=== PATIENT | female | born 1990 | race American Indian/Alaskan Native ===

== ENCOUNTER 2018-11-20 05:52 | Day surgery (SDC) | payer MEDICAID ==
--- NOTE | 2018-11-19 16:56 | Short Stay Summary ---
Short Stay Documentation Date of service: 11/20/18 Narrative H&P: 28y/o with findings of a right adnexal mass likely consistent with a dermoid tumor. The patient complains of pelvic pain and dyspareunia. There has been no resolution of the cyst with expectant management. Patient has been reassessed/reevaluated/re-examined. H&P has been reviewed. No interval changes. - History Principal diagnosis: Right adnexal mass Past Medical History: HIV/AIDS Past Surgical History: Social history: single - Allergies and Medications Current Medications: Allergies No Known Allergies Allergy (Verified 11/14/18 09:01) Home Medications Medication Instructions Recorded Confirmed Last Taken Type Elviteg/Cob/Emtri/Tenof Alafen 1 each PO DAILY 11/18/18 11/18/18 Unknown History [Genvoya Tablet] - Physical exam General appearance: no acute distress Integumentary: no rash HEENT: Atraumatic Lungs: Clear to auscultation Breasts: deferred Heart: Regular rate Gastrointestinal: normal Female Genitourinary: deferred Rectal Exam: deferred - Brief post op/procedure progress note Date of procedure: 11/20/18 Pre-op diagnosis: Right adnexal mass Post-op diagnosis: same Procedure: laparoscopy right ovarian cystectomy left ovarian cystotomy Anesthesia: GETA Surgeon: PEG MENG Estimated blood loss: minimal Pathology: list (contents of dermoid cyst and ovarian cyst wall) Specimen disposition: to lab Condition: stable - Hospital course Hospital course: The patient was admitted the day of surgery and underwent a laparoscopy for right adnexal mass. Please see operative note for details of surgery. Postoperative course was uneventful. - Disposition Condition at discharge: Good Disposition: DC-[id number] TO HOME OR SELFCARE Short Stay Discharge Plan Activity: other (pelvic rest for 1 week) Diet: regular Additional Instructions: Patient may schedule follow up with Dr. Arias in 2 weeks Prescriptions: Ibuprofen [Motrin] 800 mg PO Q8HR PRN #60 tablet PRN Reason: Pain, Mild (1-3) oxyCODONE /ACETAMINOPHEN [Percocet 5/325] 1 tab PO Q6HR PRN #20 tablet PRN Reason: Pain
[2018-11-20] MEDS ORDERED: LACTATED RINGERS 1,000 ML IV SCH (06:35)
[2018-11-20] MEDS ORDERED: NACL BACTERIOSTATIC INFILTRATI ONE (06:40)
[2018-11-20] MEDS ORDERED: MARCAINE 0.5% INFILTRATI ONE ×2 (06:53→07:39)
[2018-11-20] MEDS ORDERED: XYLOCAINE MPF 2% ONE (07:24)
[2018-11-20] MEDS ORDERED: ZOFRAN ONE (07:24)
[2018-11-20] MEDS ORDERED: DECADRON ONE (07:24)
[2018-11-20] MEDS ORDERED: DIPRIVAN 10 MG/ML IV ONE (07:24)
[2018-11-20] MEDS ORDERED: ZEMURON IV ONE (07:24)
[2018-11-20] MEDS ORDERED: SUBLIMAZE ONE (07:24)
[2018-11-20] MEDS ORDERED: TORADOL ONE (07:24)
[2018-11-20] MEDS ORDERED: NEURONTIN PO NR (07:26)
[2018-11-20 07:28] LABS: Hematocrit 38.8 % (30.3-42.9)
[2018-11-20] MEDS ORDERED: NACL 0.9% IR ONE ×2 (07:39)
[2018-11-20] MEDS ORDERED: VERSED IV NR (08:00)
--- NOTE | 2018-11-20 08:24 | Anesthesia Consultation ---
Anesthesia Consult and Med Hx - Airway Anesthetic Teeth Evaluation: Good ROM Head & Neck: Adequate Mental/Hyoid Distance: Adequate Mallampati Class: Class II Intubation Access Assessment: Good - Pulmonary Exam CTA: Yes - Cardiac Exam Cardiac Exam: RRR - Pre-Operative Health Status ASA Pre-Surgery Classification: ASA2 Proposed Anesthetic Plan: General - Pulmonary Hx Smoking: Yes (Former) Hx Asthma: Yes (Last treated 2 years ago) - Central Nervous System Hx Psychiatric Problems: No - Other Systems Hx Alcohol Use: Yes (Occas) Hx Cancer: No
--- NOTE | 2018-11-20 08:24 | Anesthesia Day of Surgery ---
Anesthesia Day of Surgery - Day of Surgery Patient Examined: Yes Patient H&P Reviewed: Yes Patient is NPO: Yes
--- NOTE | 2018-11-20 09:19 | Operative Report ---
Operative Report Operative Report: Date of surgery: 11/20/2018 Preoperative diagnosis: Right adnexal mass and acute pelvic pain Postoperative diagnosis: Same as above Procedure: Laparoscopy; right ovarian cystectomy; left ovarian cystotomy Surgeon: Preeti Arias M.D. Anesthesia: General endotracheal anesthesia Estimated blood loss: Minimal Findings: An enlarged right ovarian cyst consistent with a dermoid tumor. The cyst had evidence of fatty content and an abundant amount of hair. There were also findings of a simple left ovarian cyst. Indication: 28-year-old with a history of worsening pelvic pain secondary to right adnexal cyst likely consistent with a dermoid tumor. Procedure: The patient was taken to the operating room and given general endotracheal anesthesia without complication. The patient is prepped and draped in a normal sterile fashion. A bivalve speculum was placed in the patient's vagina and a single-tooth tenaculum was placed on the anterior lip of the cervix .A uterine acorn manipulator was placed, and the bivalve speculum was then removed. Attention was then turned to the patient's abdomen where a 5 mm infraumbilical skin incision was then made. A Veress needle was placed and peritoneal entry was verified water-filled syringe. Insufflation of the peritoneal cavity was performed with CO2 gas. A 5 mm trocar was placed and the laparoscope was then inserted. The patient was then placed in Trendelenburg. A 5 mm suprapubic skin incision was then made. Under direct visualization a 5 mm trocar was then placed. General survey of the patient's abdomen revealed enlarged right ovarian cyst consistent with a dermoid tumor. The cyst contents included fatty tissue and hair. An additional left lateral 10 mm incision was made for placement of the 10 mm trocar. The monopolar scissors were used to incise the right ovarian cyst without abundant contents of fatty tissue and hair that was expressed. The ovarian cyst wall was excised. Attention was then turned to the left ovary where a cystotomy was performed with evidence of clear fluid. An Endo Catch bag was inserted through the 10 mm trocar. The cyst contents were placed into the Endo Catch bag and removed through the 10 mm incision. The 10 mm fascial incision was then closed with a Chandler Cowan device with 0 Vicryl suture. The pneumoperitoneum was then released. The 5mm trocar was then removed. The pneumoperitoneum was then released. The 5 mm trocar laparoscope was then removed. The skin incisions were then closed with 4-0 Monocryl. The incisions were injected with quarter percent Marcaine. Dressings were applied to the incision. The vaginal instruments were then removed atraumatically. Then successfully extubated and taken to the recovery room. All sponge laps and needle counts were correct 2.
[2018-11-20] MEDS ORDERED: PERCOCET 5/325 PO PRN (09:34)
[2018-11-20] MEDS ORDERED: ZOFRAN IV PRN (09:35)
[2018-11-20] MEDS ORDERED: DILAUDID IV PRN (09:35)
[2018-11-20] MEDS ORDERED: ROBINUL ONE (09:37)
[2018-11-20] MEDS ORDERED: BLOXIVERZ ONE (09:37)
[2018-11-20 10:01] VITALS: BP 130/72
--- NOTE | 2018-11-20 11:19 | Post Anesthesia Evaluation ---
- Post Anesthesia Evaluation Patient Participated: Yes Airway Patent: Yes Stable Respiratory Function: Yes Nausea/Vomiting: No Temp > 96.8F: Yes Pain Manageable: Yes Adequeate Hydration: Yes Anesthesia Complications: No
== END 2018-11-20 11:00 | disposition home or self-care (01) ==
LOC: OR 05:52
PROVIDERS: ATTEND Obstetrics & Gynecology
DX: D27.0 Benign neoplasm of right ovary (principal); J45.909 Unspecified asthma, uncomplicated; Z79.899 Other long term (current) drug therapy; Z87.891 Personal history of nicotine dependence; Z98.891 History of uterine scar from previous surgery; Z72.89 Other problems related to lifestyle; Z98.890 Other specified postprocedural states; Z80.8 Family history of malignant neoplasm of other organs or systems; Z82.49 Family history of ischemic heart disease and other diseases of the circulatory system
CPT/HCPCS: 36415; 58662; 58679; 81025; 85014; 85018; 88305; 88311; A4217; C1765; J1100; J1170; J1885; J2250; J2405; J2704; J2710; J3010; J7120; 88304